=== PATIENT | female | born 1985 | race Hispanic/Latino ===

== ENCOUNTER 2021-11-22 10:05 | Inpatient (IN) | payer OTHER ==
[2021-11-22 11:05] VITALS: BMI 58.0
[2021-11-22] MEDS ORDERED: Promethazine HCl 25 MG/ML VIAL IM PRN ×2 (12:20→15:24)
[2021-11-22] MEDS ORDERED: hydrALAZINE 20 MG/ML VIAL SLOW IVP PRN ×2 (12:20→18:29)
[2021-11-22] MEDS ORDERED: Bicitra 30 ML UDCUP PO PRN (12:20)
[2021-11-22] MEDS ORDERED: Ondansetron PF 4 MG/2 ML Vial IVP PRN ×3 (12:20→18:29)
[2021-11-22] MEDS ORDERED: Famotidine/PF 20 mg/2ml Vial SLOW IVP PRN (12:20)
[2021-11-22] MEDS ORDERED: Lactated Ringer's 1,000 ML IV SCH (12:30)
[2021-11-22] MEDS ORDERED: ceFAZolin 2 GM/Dextrose 50 ML 2 GM in Premix Bag 1 BAG IVPB SCH (12:30)
[2021-11-22 13:05] LABS: Hemoglobin 9.3 g/dL (12.0-15.5); Mean Corpuscular HGB CONC 30.7 g/dL (32.0-36.0); Mean Corpuscular Hemoglobin 23.2 pg (27.0-33.0); Mean Corpuscular Volume 75.6 fl (81.6-98.3); Mean Platelet Volume 11.1 fl (7.4-10.4); Platelet Count 196 10x3/uL (150-450); RBC Distribution Width 18.3 % (11.5-14.5); Red Blood Cell (RBC) Count 4.01 10x6/uL (3.90-5.03); White Blood Cell (WBC) Count 9.8 10x3/uL (3.5-10.5)
[2021-11-22] MEDS ORDERED: DEXTROSE IVPB SCH (13:24)
[2021-11-22] MEDS ORDERED: CEFAZOLIN IVPB SCH (13:24)
[2021-11-22 13:38] LABS: Hep B Surf Ag Non-Reactive S/CO (NonReactive)
[2021-11-22 13:41] LABS: Syphilis Antibody Nonreactive (Nonreactive); Syphilis Antibody Index 0.04 S/CO (<1.00 Non-Reactive)
[2021-11-22 13:43] LABS: HBSAg Index 0.19 S/CO (0-0.99)
[2021-11-22] MEDS ORDERED: Ondansetron PF 4 MG/2 ML Vial ONE (13:53)
[2021-11-22] MEDS ORDERED: Ketorolac Tromethamine 30 MG/ML VIAL ONE (13:53)
[2021-11-22] MEDS ORDERED: Dexamethasone 4 mg/ml Vial ONE (13:53)
[2021-11-22] MEDS ORDERED: Phenylephrine 10 MG/ML VIAL ONE (13:53)
[2021-11-22] MEDS ORDERED: Morphine PF 10 MG/10 ML VIAL ONE (13:53)
[2021-11-22] MEDS ORDERED: Oxytocin 10 UNITS/ML VIAL ONE (13:54)
[2021-11-22] MEDS ORDERED: CEFAZOLIN 3 GM, Admixture Fee 1 EACH in Sodium Chloride 0.9% 100 ML IVPB SCH (14:00)
[2021-11-22 14:14] LABS: SARS-CoV-2 NAA Rapid Test Not Detected (NotDetected)
[2021-11-22] MEDS ORDERED: Promethazine HCl 25 MG/ML VIAL ONE (15:13)
[2021-11-22] MEDS ORDERED: Promethazine HCl 25 MG SUPP PR PRN (15:24)
[2021-11-22] MEDS ORDERED: Hydrocerin (Eucerin) Cream 120 gm Jar TOP PRN (15:24)
[2021-11-22] MEDS ORDERED: diphenhydrAMINE 50 MG/ML VIAL IVP PRN (15:24)
[2021-11-22] MEDS ORDERED: Ondansetron HCl/PF 4 MG/2 ML Vial IVP PRN (15:24)
[2021-11-22] MEDS ORDERED: Naloxone HCl 0.4 mg/ml Vial IVP PRN ×2 (15:24)
[2021-11-22] MEDS ORDERED: Fentanyl 100 MCG/2 ML VIAL SLOW IVP PRN (15:24)
[2021-11-22] MEDS ORDERED: Naloxone HCl 0.4 mg/ml Vial IV PRN (15:24)
[2021-11-22] MEDS ORDERED: Meperidine HCl/PF 25 MG/ML VIAL SLOW IVP PRN (15:24)
[2021-11-22] MEDS ORDERED: Communication Order-Pharmacy FS SCH (15:30)
[2021-11-22] MEDS: Fentanyl 100 MCG/2 ML VIAL ONE ×2 (15:30→16:14)
[2021-11-22] MEDS ORDERED: Erythromycin Base 0.5% Oint 1 GM TUBE ONE (15:36)
[2021-11-22] MEDS ORDERED: Phytonadione Neonatal 1 MG/0.5 ML AMP ONE (15:36)
[2021-11-22] MEDS ORDERED: Fentanyl 100 MCG/2 ML VIAL ONE (16:16)
[2021-11-22] MEDS ORDERED: Meperidine HCl/PF 25 MG/ML VIAL ONE (17:05)
[2021-11-22] MEDS ORDERED: Boostrix 0.5 ML (Tdap) VIAL IM ONE (18:29)
[2021-11-22] MEDS ORDERED: Acetaminophen 325 MG TAB PO PRN (18:29)
[2021-11-22] MEDS ORDERED: Bisacodyl 10 MG SUPP PR PRN (18:29)
[2021-11-22] MEDS ORDERED: diphenhydrAMINE 25 MG CAP PO PRN (18:29)
[2021-11-22] MEDS ORDERED: Lanolin Ointment 7 GM TUBE TOP PRN (18:29)
[2021-11-23] MEDS ORDERED: HYDROcodone/Acetaminophen 5/325 mg Tablet PO PRN ×2 (03:30)
[2021-11-23] MEDS ORDERED: Zolpidem Tartrate 5 MG TAB PO PRN (03:30)
[2021-11-23 04:42] LABS: Hemoglobin 7.6 g/dL (12.0-15.5); Mean Corpuscular HGB CONC 31.1 g/dL (32.0-36.0); Mean Corpuscular Hemoglobin 23.2 pg (27.0-33.0); Mean Corpuscular Volume 74.6 fl (81.6-98.3); Mean Platelet Volume 11.3 fl (7.4-10.4); Platelet Count 178 10x3/uL (150-450); RBC Distribution Width 18.6 % (11.5-14.5); Red Blood Cell (RBC) Count 3.27 10x6/uL (3.90-5.03)
[2021-11-23] MEDS: Ketorolac Tromethamine 30 MG/ML VIAL IVP SCH ×3 (07:21→15:30)
[2021-11-23] MEDS: Ferrous Sulfate 325 MG TAB PO SCH ×3 (07:21→21:59)
[2021-11-23] MEDS: Docusate 100 MG CAP PO SCH ×3 (07:21→21:59)
[2021-11-23] MEDS: Prenatal Vitamin 1 TAB PO SCH (09:01)
[2021-11-23] MEDS: Simethicone Chewable 80 MG TAB PO PRN ×3 (09:01→17:42)
[2021-11-23] MEDS: Ibuprofen 800 MG TAB PO SCH (21:59)
[2021-11-24] MEDS: Ibuprofen 800 MG TAB PO SCH ×2 (04:55→13:35)
[2021-11-24] MEDS: Ferrous Sulfate 325 MG TAB PO SCH (07:58)
[2021-11-24] MEDS: Prenatal Vitamin 1 TAB PO SCH (08:00)
[2021-11-24] MEDS: Docusate 100 MG CAP PO SCH (08:00)
[2021-11-24 11:22] VITALS: BP 134/79; TEMP 98.7
== END 2021-11-24 15:15 | disposition home or self-care (01) | DRG 783 ==
LOC: CSHLD/OP 10:05 → CSHLD 14:13 → CSHPP 17:50
PROVIDERS: ADMIT Student in an Organized Health Care Education/Training Program; ATTEND Student in an Organized Health Care Education/Training Program
PROC: 10D00Z1 Extraction of Products of Conception, Low, Open Approach (ICD-10-PCS; principal; 2021-11-22)
PROC: 0UB50ZZ Excision of Right Fallopian Tube, Open Approach (ICD-10-PCS; 2021-11-22)
DX: O34.211 Maternal care for low transverse scar from previous cesarean delivery (principal); O75.3 Other infection during labor; O10.92 Unspecified pre-existing hypertension complicating childbirth; D62 Acute posthemorrhagic anemia; Z3A.37 37 weeks gestation of pregnancy; Z37.0 Single live birth; O99.824 Streptococcus B carrier state complicating childbirth; Z79.899 Other long term (current) drug therapy; Z79.82 Long term (current) use of aspirin; O24.420 Gestational diabetes mellitus in childbirth, diet controlled; O99.62 Diseases of the digestive system complicating childbirth; K66.0 Peritoneal adhesions (postprocedural) (postinfection); O99.214 Obesity complicating childbirth; F32.A Depression, unspecified; O99.344 Other mental disorders complicating childbirth; O90.81 Anemia of the puerperium; E66.01 Morbid (severe) obesity due to excess calories; Z20.822 Contact with and (suspected) exposure to COVID-19; N70.91 Salpingitis, unspecified; N89.8 Other specified noninflammatory disorders of vagina; O99.892 Other specified diseases and conditions complicating childbirth
CPT/HCPCS: 36415; 36416; 51702; 76815; 85027; 86780; 86850; 86900; 86901; 87340; 88305; 99285; J0690; J1100; J1885; J2175; J2274; J2370; J2405; J2550; J2590; J3010; J3490; S0028; U0002